=== PATIENT | male | born 1985 | race African-American/Black ===

== ENCOUNTER 2019-10-29 10:34 | Observation (INO) | payer OTHER ==
[~2019-10-29] VITALS: Ht 165.1 cm; Wt 113.4 kg
[~2019-10-29 10:34] MED LIST: MOBIC15 MG; NORCO 5-325 TA1 EACH PO; ZOFRAN4 MG PO
[2019-10-29 10:42] VITALS: BP 151/96
[2019-10-29 11:39] LABS: HEMATOCRIT 54.1 % (42.0-52.0); HEMOGLOBIN 18.2 gm/dL (14.0-18.0); MCH 26.3 pg (26.0-34.0); MCHC 33.6 g/dL (28.0-37.0); MCV 78.3 fL (80.0-100.0); MPV 10.7 fl. (7.2-11.1); NUCLEATED RBCS 0 /100WBC; PLATELET COUNT* 247 thou/uL (150-400); RBC 6.91 mil/uL (4.50-6.00); RDW-CV 15.8 % (10.5-14.5); WBC 11.3 thou/uL (4.0-11.0)
[2019-10-29 11:41] LABS: INFLUENZA A ANTIGEN Negative (Negative); INFLUENZA B ANTIGEN Negative (Negative)
[2019-10-29 11:55] LABS: CALCIUM 9.2 mg/dL (8.5-10.1); CREATININE 1.6 mg/dL (0.6-1.3); POTASSIUM 4.2 mmol/L (3.5-5.1)
[2019-10-29 12:00] LABS: ALBUMIN 4.5 g/dL (3.4-5.0); TOTAL BILIRUBIN 0.7 mg/dL (<0.1-1.0); TOTAL PROTEIN 8.9 g/dL (6.4-8.2)
[2019-10-29 12:11] LABS: ABSOLUTE LYMPHOCYTES 0.3 thou/uL (0.8-5.3); ABSOLUTE MONOCYTES 0.3 thou/uL (0.0-1.2); ABSOLUTE NEUTROPHILS 10.6 thou/uL (1.6-8.1); PLATELET ESTIMATE ADEQUATE
[2019-10-29 13:53] LABS: URINE BILIRUBIN NEGATIVE (Negative); URINE BLOOD NEGATIVE (Negative); URINE CLARITY CLEAR; URINE COLOR YELLOW; URINE GLUCOSE-RANDOM NEGATIVE (Negative); URINE KETONES NEGATIVE (Negative); URINE LEUKOCYTES-REFLEX NEGATIVE (Negative); URINE NITRITE-REFLEX NEGATIVE (Negative); URINE PROTEIN NEGATIVE (Negative); URINE SPECIFIC GRAVITY 1.025 (1.005-1.030); URINE UROBILINOGEN 0.2 E.U./dl (0.2-1.0)
[2019-10-29 15:16] LABS: APTT 32.9 Seconds (25.0-31.3); PROTIME 10.7 Seconds (9.20-11.50)
[2019-10-29 20:00] VITALS: BP 106/79
[2019-10-29 22:00] VITALS: BP 135/60
[2019-10-29 23:34] VITALS: BP 116/73
[2019-10-30 03:30] VITALS: BP 120/75
[2019-10-30 07:00] VITALS: BP 142/79
[2019-10-30 10:18] LABS: HEMATOCRIT 44.1 % (42.0-52.0); MCH 25.8 pg (26.0-34.0); MCHC 32.8 g/dL (28.0-37.0); MCV 78.6 fL (80.0-100.0); MPV 10.7 fl. (7.2-11.1); RBC 5.61 mil/uL (4.50-6.00); RDW-CV 15.2 % (10.5-14.5); WBC 5.6 thou/uL (4.0-11.0)
[2019-10-30 10:21] LABS: HEMOGLOBIN 14.5 gm/dL (14.0-18.0)
[2019-10-30 10:29] LABS: CALCIUM 7.7 mg/dL (8.5-10.1); POTASSIUM 3.4 mmol/L (3.5-5.1)
[2019-10-30 12:00] VITALS: BP 127/76
[2019-10-30 16:00] VITALS: BP 141/94
--- NOTE | 2019-10-30 16:12 | 2DMMODE ---
[place] [address] 2 D/M-MODE ECHOCARDIOGRAM Name: JORGE KNUTSON Room: [address] Cely#: [id number] Admission: 10/29/19 Attend Phys: Aditya Jovel Discharge: Date of : 83 Date of Service: 10/30/19 1611 Report #: [id number] THIS REPORT FOR: cc: Abdi Reyna MD, Richard K. MD Holkins, John M. MD [facility] ~ APPROVED REPORT Study performed: 10/30/2019 09:51:04 EXAM: Comprehensive 2D, Doppler, and color-flow Echocardiogram Patient Location: Bedside BSA: 2.17 HR: 107 bpm BP: 142/79 mmHg Other Information Study Quality: Good Indications Tachycardia 2D Dimensions IVSd: 12.81 (7-11mm) LVOT Diam: 23.53 (18-24mm) LVDd: 41.68 mm PWd: 13.03 (7-11mm) Ascending Ao: 32.25 (22-36mm) LVDs: 30.17 (25-40mm) Aortic Root: 28.72 mm Volumes Left Atrial Volume (Systole) LA ESV Index: 13.90 mL/m2 Aortic Valve AoV Peak Milo.: 1.54 m/s AO Peak Gr.: 9.49 mmHg LVOT Max P.50 mmHg AO Mean Gr.: 5.19 mmHg LVOT Mean P.52 mmHg LVOT Max V: 1.37 m/s AO V2 VTI: 24.67 cm LVOT Mean V: 0.86 m/s CULLEN (VTI): 3.67 cm2 LVOT V1 VTI: 20.84 cm Mitral Valve E/A Ratio: 1.13 [place] [address] 2 D/M-MODE ECHOCARDIOGRAM Name: JORGE KNUTSON Room: [address] Martin DinhRJayden#: [id number] Admission: 10/29/19 Attend Phys: Aditya Jovel Discharge: Date of : 83 Date of Service: 10/30/19 1611 Report #: [id number] MV Decel. Time: 234.13 ms MV E Max Milo.: 0.76 m/s MV PHT: 67.90 ms MVA (PHT): 3.24 cm2 TDI E/Lateral E': 5.43 E/Medial E': 4.47 Medial E' Milo.: 0.17 m/s Lateral E' Milo.: 0.14 m/s Pulmonary Valve PV Peak Milo.: 1.11 m/s PV Peak Gr.: 4.95 mmHg Tricuspid Valve RAP Estimate: 5.00 mmHg TR Peak Gr.: 21.42 mmHg RVSP: 26.42 mmHg PA Pressure: 26.42 mmHg Left Ventricle The left ventricle is normal size. There is normal LV segmental wall motion. There is normal left ventricular wall thickness. Left ventricular systolic function is normal. The left ventricular ejection fraction is within the normal range. LVEF is 60-65%. The left ventricular diastolic function is normal. Right Ventricle The right ventricle is normal size. The right ventricular systolic function is normal. Atria The left atrium size is normal. The right atrium size is normal. Aortic Valve The aortic valve is normal in structure. No aortic regurgitation is present. There is no aortic valvular stenosis. Mitral Valve The mitral valve is normal in structure. There is no mitral valve regurgitation noted. No evidence of mitral valve stenosis. Tricuspid Valve The tricuspid valve is normal in structure. Trace tricuspid regurgitation[place] [address] 2 D/M-MODE ECHOCARDIOGRAM Name: JORGE KNUTSON [address] [id number] Admission: 10/29/19 Attend Phys: Aditya Jovel Discharge: Date of : 83 Date of Service: 10/30/19 1611 Report #: [id number] The pulmonary valve is normal in structure. There is no pulmonic valvular regurgitation. Great Vessels The aortic root is normal in size. IVC is normal in size and collapses >50% with inspiration. Pericardium There is no pericardial effusion. <Conclusion> The left ventricle is normal size. There is normal left ventricular wall thickness. Left ventricular systolic function is normal. The left ventricular ejection fraction is within the normal range. LVEF is 60-65%. The left ventricular diastolic function is normal. The right ventricle is normal size. The left atrium size is normal. The aortic valve is normal in structure. The mitral valve is normal in structure. The tricuspid valve is normal in structure. IVC is normal in size and collapses >50% with inspiration. There is no pericardial effusion. There is normal LV segmental wall motion. <ELECTRONICALLY SIGNED> By: Jadon Johns MD, FACC 10/30/19 161 10 10 Jadon Johns MD, FACC /INF
--- NOTE | 2019-10-30 16:45 | EKG ---
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
--- NOTE | 2019-10-30 16:46 | EKG ---
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1985 Requested By: Mckayla Quintero Order Number: [id number] Derdick MD: Jadon Johns Measurements Intervals [place] Rate: 145 P: 56 PA: 151 QRS: 53 QRSD: 71 T: 7 QT: 293 QTc: 455 Interpretive Statements Sinus tachycardia Borderline T abnormalities, inferior leads Baseline wander in lead(s) V2 No previous ECG available for comparison Electronically Signed On 10-30-2019 16:45:35 [employer]UCK [employer]IVER [employer] by Jadon Johns [email or web address] <ELECTRONICALLY SIGNED> By: Jadon Johns MD, [facility] 10/30/19 1645 170 170 Jadon Johns MD, [facility] /EPI
[2019-10-30 19:20] VITALS: BP 148/83
[2019-10-30 22:07] LABS: GLYCOHEMOGLOBIN (HGB A1C) 5.6 % (4.8-5.6)
[2019-10-31 00:12] VITALS: BP 144/93
[2019-10-31 04:39] VITALS: BP 149/88
[2019-10-31 06:58] LABS: HEMATOCRIT 40.6 % (42.0-52.0); HEMOGLOBIN 13.9 gm/dL (14.0-18.0); MCH 26.3 pg (26.0-34.0); MCHC 34.2 g/dL (28.0-37.0); MCV 77.1 fL (80.0-100.0); MPV 10.2 fl. (7.2-11.1); RBC 5.27 mil/uL (4.50-6.00); WBC 5.6 thou/uL (4.0-11.0)
[2019-10-31 07:30] VITALS: BP 146/107
[2019-10-31 07:46] LABS: ALBUMIN 3.2 g/dL (3.4-5.0); CALCIUM 7.4 mg/dL (8.5-10.1); MAGNESIUM 1.7 mg/dL (1.8-2.4); POTASSIUM 3.4 mmol/L (3.5-5.1); TOTAL BILIRUBIN 0.5 mg/dL (<0.1-1.0); TOTAL PROTEIN 6.6 g/dL (6.4-8.2)
[2019-10-31 11:24] VITALS: BP 131/80
[2019-10-31] MEDS ORDERED: METOPROLOL SUCC25 M1 PO (11:59)
[2019-10-31 13:34] VITALS: BP 131/80
== END 2019-10-31 15:22 | disposition home or self-care (01) ==
LOC: M.ERS 10:34 → M.2W 18:41 → M.TBA-ER 18:41 → M.2W 18:41
PROVIDERS: Internal Medicine; Personal Emergency Response Attendant; ADMIT Internal Medicine
DX: A08.4 Viral intestinal infection, unspecified (principal); R11.2 Nausea with vomiting, unspecified; J98.11 Atelectasis; R00.0 Tachycardia, unspecified; R73.9 Hyperglycemia, unspecified; N17.9 Acute kidney failure, unspecified; E86.0 Dehydration; I10 Essential (primary) hypertension